=== PATIENT | female | born 1985 | race American Indian/Alaskan Native ===

== ENCOUNTER 2018-09-23 19:24 | Emergency (ER) | payer MEDICAID ==
[2018-09-23] MEDS ORDERED: ULTRAM PO ONE (22:33)
--- NOTE | 2018-09-23 22:40 | Emergency Department Report ---
ED Fall HPI - General Chief Complaint: Fall Stated Complaint: SLIP AND FALL Time Seen by Provider: 09/23/18 22:25 Source: patient Mode of arrival: Ambulatory - History of Present Illness Initial Comments: 32-year-old -[place] female with a past medical history of asthma but currently smokes cigarettes daily to the emergency room for complaint of slip and fall sustaining injury to her lower back and head. Patient reports that she was at [facility] on [facility] she was walking to the table and had slipped and fell on the floor. Patient reports that she fell on the back of her head but mostly complains of right side back pain. Patient denies any nausea no vomiting no change in vision. Patient reports no known drug allergies currently takes albuterol as needed for her asthma. Patient reports her last menstrual period was 09/17/2018. Complaint: fall -: This evening Fall From: standing When Fall Occurred: 1-3 hours [employer] Fall Witnessed: yes, by family Place Fall Occurred: other ([facility] on [facility]) Loss of Consciousness: none Prolonged Down Time?: no Symptoms Prior to Fall: none Location: head, back Severity scale (0 -10): 10 Quality: aching Context: tripped/slipped Associated Symptoms: denies: neck pain - Related Data Previous Rx's Medication Instructions Recorded Last Taken Type Oxycodone HCl/Acetaminophen 1 each PO Q6HR PRN #20 tablet 09/06/15 Unknown Rx [Percocet 10/325 mg] diazePAM TAB [Valium] 5 mg PO Q8H PRN #21 tablet 09/06/15 Unknown Rx Baclofen [Lioresal] 10 mg PO TID #12 tab 09/24/18 Unknown Rx Ibuprofen [Motrin 600 MG tab] 600 mg PO Q8H PRN #30 tablet 09/24/18 Unknown Rx traMADol [Ultram 50 MG tab] 50 mg PO Q6HR PRN #12 tablet 09/24/18 Unknown Rx Allergies Allergy/AdvReac Type Severity Reaction Status Date / Time No Known Allergies Allergy Verified 09/23/18 19:46 ED Review of Systems ROS: Stated complaint: SLIP AND FALL Other details as noted in HPI Comment: All other systems reviewed and negative Cardiovascular: denies: chest pain, palpitations Endocrine: no symptoms reported Gastrointestinal: denies: abdominal pain, nausea, vomiting Musculoskeletal: back pain Skin: denies: rash, lesions Psychiatric: denies: anxiety, depression Hematological/Lymphatic: denies: easy bleeding, easy bruising ED Past Medical Hx - Past Medical History Hx Hypertension: Yes Hx Asthma: Yes - Surgical History Past Surgical History?: Yes Additional Surgical History: - Social History Smoking Status: Never Smoker Substance Use Type: None - Medications Home Medications: Home Medications Medication Instructions Recorded Confirmed Last Taken Type Oxycodone HCl/Acetaminophen 1 each PO Q6HR PRN #20 tablet 09/06/15 Unknown Rx [Percocet 10/325 mg] diazePAM TAB [Valium] 5 mg PO Q8H PRN #21 tablet 09/06/15 Unknown Rx Baclofen [Lioresal] 10 mg PO TID #12 tab 09/24/18 Unknown Rx Ibuprofen [Motrin 600 MG tab] 600 mg PO Q8H PRN #30 tablet 09/24/18 Unknown Rx traMADol [Ultram 50 MG tab] 50 mg PO Q6HR PRN #12 tablet 09/24/18 Unknown Rx ED Physical Exam - General Limitations: No Limitations ED Course Vital Signs 09/23/18 19:46 Temperature 98.3 F Pulse Rate 93 H Respiratory 16 Rate Blood Pressure 128/70 O2 Sat by Pulse 98 Oximetry ED Medical Decision Making - Radiology Data Radiology results: report reviewed FINAL REPORT PROCEDURE: XR SHOULDER 2+V RT TECHNIQUE: Right shoulder radiographs including AP views in internal and external rotation and abduction. CPT 86797 HISTORY: fall COMPARISON: No prior studies are available for comparison. FINDINGS: Fracture (s) and/or Dislocation(s): None . Joint space(s): Normal . Soft tissues: Normal . Bone mineralization: Normal . Foreign bodies: None . IMPRESSION: Normal Examination Transcribed By: CO Dictated By: CHERY PAIZ MD Electronically Authenticated By: CHERY PAIZ MD Signed Date/Time: 09/24/1833 DD/ TD/TT: 09/24/1835 FINAL REPORT PROCEDURE: XR SPINE LUMBOSACRAL 2-3V TECHNIQUE: Lumbar spine radiographs, including AP, lateral, and lumbosacral spot views. CPT 08407 HISTORY: fall back paiin, Upper and lower back pain post slip and fall today COMPARISON: No prior studies are available for comparison. FINDINGS: Alignment: Normal. Vertebral body heights/Disk spaces: Normal. Fracture(s): None. Facets: Normal. Bone mineralization: Normal. IMPRESSION: Normal Examination. Transcribed By: CO Dictated By: CHERY PAIZ MD Electronically Authenticated By: CHERY PAIZ MD Signed Date/Time: 09/24/1822 DD/ TD/TT: 09/24/1824 FINAL REPORT PROCEDURE: XR SPINE THORACIC 2V TECHNIQUE: Thoracic spine radiographs including AP, lateral, and Swimmer's views. CPT 70791 HISTORY: fall back pain, Upper and lower back pain post slip and fall today COMPARISON: No prior studies are available for comparison. FINDINGS: Alignment: Normal . Vertebral body height: Normal . Disk spaces: Normal . Fracture(s): None . Bone mineralization: Normal . IMPRESSION: Normal Examination. Transcribed By: CO Dictated By: CHERY PAIZ MD Electronically Authenticated By: CHERY PAIZ MD Signed Date/Time: 09/24/1822 DD/ TD/TT: 09/24/1825 FINAL REPORT PROCEDURE: CT HEAD/BRAIN WO CON TECHNIQUE: Computerized tomography of the head was performed without contrast material. HISTORY: fall hit head COMPARISON: No prior studies are available for comparison. FINDINGS: Skull and scalp: Normal. Paranasal sinuses: Normal. Ventricles and subarachnoid spaces: Normal. Cerebrum: No evidence of hemorrhage, acute infarction or mass . Cerebellum and brainstem: No evidence of hemorrhage, acute infarction or mass. Vasculature: Normal. Comments: None. IMPRESSION: Normal Examination Transcribed By: CO Dictated By: CHERY PAIZ MD Electronically Authenticated By: CHERY PAIZ MD Signed Date/Time: 09/24/18126 DD/ 8 TD/TT: 09/24/18128 - Medical Decision Making Patient has been evaluated by this provider and fast. X-ray of lumbar sacral thoracic right shoulder and head CT are all within normal limits. Patient was given somewhat offered pain management. She'll be discharged home on ibuprofen to follow up with her primary care provider if her symptoms persist or gets worse. Critical care attestation.: If time is entered above; I have spent that time in minutes in the direct care of this critically ill patient, excluding procedure time. ED Disposition Clinical Impression: Fall Qualifiers: Encounter type: initial encounter Qualified Code(s): W19.XXXA - Unspecified fall, initial encounter Acute back pain Qualifiers: Back pain location: back pain in other location Qualified Code(s): M54.9 - Dorsalgia, unspecified Head injury Qualifiers: Encounter type: initial encounter Qualified Code(s): S09.90XA - Unspecified injury of head, initial encounter Disposition: TO HOME OR SELFCARE Is pt being admited?: No Does the pt Need Aspirin: No Condition: Stable Instructions: Fall Prevention (ED), Minor Head Injury (ED), Low Back Strain (ED), Acute Low Back Pain (ED), Arthralgia (ED) Additional Instructions: Please take pain medication as prescribed. If her symptoms persist or gets worse please follow up with your primary care provider. Prescriptions: Baclofen [Lioresal] 10 mg PO TID #12 tab Ibuprofen [Motrin 600 MG tab] 600 mg PO Q8H PRN #30 tablet PRN Reason: Pain traMADol [Ultram 50 MG tab] 50 mg PO Q6HR PRN #12 tablet PRN Reason: Pain Referrals: INDIGO BELTRAN MD [Primary Care Provider] - 3-5 Days Forms: Work/School Release Form(ED)
[2018-09-23] MEDS ORDERED: FLEXERIL PO ONE (22:41)
--- NOTE | 2018-09-24 00:23 | XRay Report ---
FINAL REPORT PROCEDURE: XR SPINE THORACIC 2V TECHNIQUE: Thoracic spine radiographs including AP, lateral, and Swimmer's views. CPT 48179 HISTORY: fall back pain, Upper and lower back pain post slip and fall today COMPARISON: No prior studies are available for comparison. FINDINGS: Alignment: Normal . Vertebral body height: Normal . Disk spaces: Normal . Fracture(s): None . Bone mineralization: Normal . IMPRESSION: Normal Examination.
--- NOTE | 2018-09-24 00:23 | XRay Report ---
FINAL REPORT PROCEDURE: XR SPINE LUMBOSACRAL 2-3V TECHNIQUE: Lumbar spine radiographs, including AP, lateral, and lumbosacral spot views. CPT 23263 HISTORY: fall back paiin, Upper and lower back pain post slip and fall today COMPARISON: No prior studies are available for comparison. FINDINGS: Alignment: Normal. Vertebral body heights/Disk spaces: Normal. Fracture(s): None. Facets: Normal. Bone mineralization: Normal. IMPRESSION: Normal Examination.
--- NOTE | 2018-09-24 00:34 | XRay Report ---
FINAL REPORT PROCEDURE: XR SHOULDER 2+V RT TECHNIQUE: Right shoulder radiographs including AP views in internal and external rotation and abduc tion. CPT 41105 HISTORY: fall COMPARISON: No prior studies are available for comparison. FINDINGS: Fracture (s) and/or Dislocation(s): None . Joint space(s): Normal . Soft tissues: Normal . Bone mineralization: Normal . Foreign bodies: None . IMPRESSION: Normal Examination
--- NOTE | 2018-09-24 01:27 | Cat Scan Report ---
FINAL REPORT PROCEDURE: CT HEAD/BRAIN WO CON TECHNIQUE: Computerized tomography of the head was performed without contrast material. HISTORY: fall hit head COMPARISON: No prior studies are available for comparison. FINDINGS: Skull and scalp: Normal. Paranasal sinuses: Normal. Ventricles and subarachnoid spaces: Normal. Cerebrum: No evidence of hemorrhage, acute infarction or mass . Cerebellum and brainstem: No evidence of hemorrhage, acute infarction or mass. Vasculature: Normal. Comments: None. IMPRESSION: Normal Examination
[2018-09-24 03:09] VITALS: BP 116/72
== END 2018-09-24 02:04 | disposition home or self-care (01) ==
LOC: ED 19:24
DX: S09.90XA Unspecified injury of head, initial encounter (principal); M54.89 Other dorsalgia; I10 Essential (primary) hypertension; J45.909 Unspecified asthma, uncomplicated; F17.210 Nicotine dependence, cigarettes, uncomplicated; W01.0XXA Fall on same level from slipping, tripping and stumbling without subsequent striking against object, initial encounter; Y93.01 Activity, walking, marching and hiking; Y99.8 Other external cause status; Y92.89 Other specified places as the place of occurrence of the external cause
CPT/HCPCS: 70450; 72070; 72100